=== PATIENT | female | born 1975 | race Caucasian/White ===

== ENCOUNTER 2017-11-02 17:04 | Emergency (ER) | payer OTHER ==
[~2017-11-02] VITALS: Ht 172.7 cm; Wt 95.3 kg
[~2017-11-02 17:04] MED LIST: AZITHROMYCIN 2250 MG PO; B-COMPLEX PLUS1 EACH PO; BUTALB-APAP-CA1 EACH PO; CEFTIN 250 MG250 MG PO; CIDATRINE500 MG PO; COMPAZINE10 MG PO; IMITREX100 MG PO; IRON; LOESTRIN 24 FE1 EACH PO; MOBIC7.5 M1 PO; MULTI-VITAMIN1 EAC5 PO; NEPHROCAPS SOFT1 CAP PO; NORCO 5-325 TA1 EACH PO; QVAR HFA 440 MCG/UN1 INH; ULTRAM 50MG TAB50 MG PO; VALIUM10 MG PO; VITAMIN D3400 UNIT PO; ZOFRAN ODT4 MG PO; ZOMIG ZMT5 MG PO
[2017-11-02 18:10] LABS: ABSOLUTE NEUTROPHILS 5.6 thou/uL (1.4-8.2); EOSINOPHILS 1.2 % (0.0-3.0); HEMATOCRIT 40.1 % (37.0-47.0); HEMOGLOBIN 13.4 gm/dL (12.0-15.0); LYMPHOCYTES 36.3 % (24.0-44.0); MCH 27.5 pg (26.0-34.0); MCHC 33.5 g/dL (28.0-37.0); MCV 82.2 fL (80.0-100.0); MONOCYTES 8.8 % (1.0-8.0); PLATELET COUNT 332 thou/uL (150-400); POLYS 52.7 % (36.0-66.0); RBC 4.88 mil/uL (4.20-5.00); RDW 15.6 % (10.5-14.5); WBC 10.6 thou/uL (4.0-11.0)
[2017-11-02 18:28] LABS: CREATININE 0.9 mg/dL (0.6-1.0); POTASSIUM 3.8 mmol/L (3.5-5.1)
[2017-11-02] MEDS ORDERED: COMPAZINE10 MG PO (19:30)
[2017-11-02 20:03] VITALS: BP 112/62
== END 2017-11-02 20:05 | disposition home or self-care (01) ==
LOC: ER 17:04
PROVIDERS: Physician Assistant
DX: G43.909 Migraine, unspecified, not intractable, without status migrainosus (principal); Z88.1 Allergy status to other antibiotic agents; Z88.8 Allergy status to other drugs, medicaments and biological substances

== ENCOUNTER 2019-05-10 19:20 | Inpatient (IN) | payer OTHER ==
[~2019-05-10] VITALS: Ht 175.3 cm; Wt 89.8 kg
[2019-05-10 19:20] VITALS: BP 122/78
[2019-05-10 20:34] LABS: ABSOLUTE NEUTROPHILS 9.5 thou/uL (1.4-8.2); BASOPHILS 0.4 % (0.0-2.0); EOSINOPHILS 0.2 % (0.0-3.0); HEMATOCRIT 41.6 % (37.0-47.0); HEMOGLOBIN 13.3 gm/dL (12.0-15.0); LYMPHOCYTES 8.7 % (24.0-44.0); MCHC 31.9 g/dL (28.0-37.0); MCV 90.8 fL (80.0-100.0); MONOCYTES 7.7 % (1.0-8.0); PLATELET COUNT 280 thou/uL (150-400); RBC 4.58 mil/uL (4.20-5.00); WBC 11.5 thou/uL (4.0-11.0)
[2019-05-10 21:31] LABS: ANION GAP 15 mmol/L (7-16); BUN 10 mg/dL (7-18); CALCIUM 9.6 mg/dL (8.5-10.1); CHLORIDE 102 mmol/L (98-107); CO2 22 mmol/L (21-32); CREATININE 0.9 mg/dL (0.6-1.0); GLUCOSE 106 mg/dL (74-106); POTASSIUM 4.2 mmol/L (3.5-5.1); SODIUM 139 mmol/L (136-145)
[2019-05-10 21:40] LABS: TROPONIN-I <0.06 ng/mL (<0.06)
[2019-05-11] MEDS ORDERED: FLONASE 0.05%50 MCG NASAL (03:34)
[2019-05-11 03:50] VITALS: BP 111/71
[2019-05-11 04:18] VITALS: BP 122/70
[2019-05-11 06:27] LABS: HEMATOCRIT 37.1 % (37.0-47.0); HEMOGLOBIN 12.5 gm/dL (12.0-15.0); MCH 29.8 pg (26.0-34.0); MCHC 33.6 g/dL (28.0-37.0); MCV 88.7 fL (80.0-100.0); RBC 4.18 mil/uL (4.20-5.00); RDW 13.9 % (10.5-14.5); WBC 10.2 thou/uL (4.0-11.0)
[2019-05-11 06:31] LABS: CALCIUM 9.2 mg/dL (8.5-10.1); CREATININE 0.9 mg/dL (0.6-1.0); POTASSIUM 3.8 mmol/L (3.5-5.1)
[2019-05-11 07:25] VITALS: BP 106/69
[2019-05-11] MEDS ORDERED: CYCLOBENZAPRINE5 MG PO (14:09)
[2019-05-11 14:27] VITALS: BP 106/69
--- NOTE | 2019-05-11 14:27 | EKG ---
[place] [address] [facility] [place] [address] ELECTROCARDIOGRAM REPORT Name: RADHA RUSSELLN Room #: 214-P ADM IN M.R.#: [id number] ������������������ Admission: 05/11/19 ������������������ Attend Phys: Andrae Reed MD Discharge: ������������������ Date of : 73 Report #: [id number] ����������������������������������������������������������������� [id number] THIS REPORT FOR: //name// [facility] ED Test Date: 2019-05-10 Test Time: 19:25:02 Pat Name: RADHA RUSSELL Department: Room: 214 Gender: F Manager Respiratory: : 1975 Requested By: Rupesh Berger Order Number: [id number] MD: Seun Hager Measurements Intervals [place] Rate: 97 P: 22 SC: 187 QRS: 43 QRSD: 86 T: 13 QT: 333 QTc: 423 Interpretive Statements Sinus rhythm Poor R wave progression Nonspecific T wave abnormality No previous ECG available for comparison Electronically Signed On 05-11-2019 14:27:25 CDT by Seun Hager [email or web address] ��������������������������������������������� <ELECTRONICALLY SIGNED> ���������������������������������������� By: Seun Hager MD, [facility] ��������������������������������������������� 05/11/19 1427 1925 24 Seun Hager MD, FACC /EPI
--- NOTE | 2019-05-11 14:32 | EKG ---
[address] Amanda [place] [address] ELECTROCARDIOGRAM REPORT Name: RADHA RUSSELL Room #: 214-P ADM IN M.R.#: [id number] ������������������ Admission: 05/11/19 ������������������ Attend Phys: Andrae Reed MD Discharge: ������������������ Date of : 73 Report #: [id number] ����������������������������������������������������������������� [id number] THIS REPORT FOR: //name// [facility] Test Date: 2019-05-11 Test Time: 07:10:53 Pat Name: RADHA RUSSELL Department: Room: 214 P Gender: F Fiscal Officer: Aries RENE : 1975 Requested By: Prema Zimmerman Order Number: [id number] MD: Seun Hager Measurements Intervals [place] Rate: 82 P: 36 RI: 197 QRS: 31 QRSD: 104 T: 57 QT: 383 QTc: 448 Interpretive Statements Sinus rhythm Nonspecific ST segment abnormality No previous ECG available for comparison Electronically Signed On 05-11-2019 14:32:22 CDT by Seun Hager [email or web address] ��������������������������������������������� <ELECTRONICALLY SIGNED> ���������������������������������������� By: Seun Hager MD, [facility] ��������������������������������������������� 05/11/19 1432 0710 0710 Seun Hager MD, FACC /EPI
== END 2019-05-11 15:06 | disposition home or self-care (01) | DRG 313 ==
LOC: ER 19:20 → EROBS 05-11 03:31 → 2N 05-11 03:52
PROVIDERS: Emergency Medicine; Nurse Practitioner Family; ADMIT Hospitalist
DX: R07.9 Chest pain, unspecified (principal); G43.909 Migraine, unspecified, not intractable, without status migrainosus; Z79.82 Long term (current) use of aspirin; Z79.899 Other long term (current) drug therapy; Z88.8 Allergy status to other drugs, medicaments and biological substances
CPT/HCPCS: 10081

== ENCOUNTER 2020-03-14 18:51 | Emergency (ER) | payer OTHER ==
[~2020-03-14] VITALS: Ht 175.3 cm; Wt 83.9 kg
[~2020-03-14 18:51] MED LIST changes: +CYCLOBENZAPRINE5 MG PO; +FLONASE 0.05%50 MCG NASAL
[2020-03-14] MEDS ORDERED: TRAMADOL 50 MG50 MG PO (19:19)
[2020-03-14] MEDS ORDERED: NABUMETONE 500500 M1 PO (19:19)
[2020-03-14 20:48] LABS: HEMATOCRIT 38.1 % (37.0-47.0); HEMOGLOBIN 13.2 gm/dL (12.0-15.0); MCH 30.5 pg (26.0-34.0); MCHC 34.7 g/dL (28.0-37.0); MCV 87.9 fL (80.0-100.0); RBC 4.33 mil/uL (4.20-5.00); RDW 14.7 % (10.5-14.5); WBC 3.3 thou/uL (4.0-11.0)
[2020-03-14] MEDS ORDERED: BUTALB-APAP-CA1 EACH PO (20:59)
[2020-03-14 21:27] LABS: CALCIUM 8.7 mg/dL (8.5-10.1); CREATININE 0.9 mg/dL (0.6-1.0); POTASSIUM 3.7 mmol/L (3.5-5.1)
[2020-03-14 23:03] VITALS: BP 106/69
== END 2020-03-14 23:05 | disposition home or self-care (01) ==
LOC: ER 18:51
PROVIDERS: Physician Assistant
DX: G43.909 Migraine, unspecified, not intractable, without status migrainosus (principal); Z79.899 Other long term (current) drug therapy; Z88.1 Allergy status to other antibiotic agents; Z88.8 Allergy status to other drugs, medicaments and biological substances

== ENCOUNTER 2021-08-08 23:27 | Inpatient (IN) | payer OTHER ==
[~2021-08-08] VITALS: Ht 175.3 cm; Wt 103.7 kg
[2021-08-08 23:27] VITALS: BP 126/76
[~2021-08-08 23:27] MED LIST changes: +NABUMETONE 500500 M1 PO; +TRAMADOL 50 MG50 MG PO
[2021-08-08] MEDS ORDERED: ZANAFLEX4 MG PO (23:33)
[2021-08-09 00:18] LABS: URINE BILIRUBIN NEGATIVE (Negative); URINE BLOOD 1+ (Negative); URINE CLARITY CLEAR; URINE COLOR YELLOW; URINE GLUCOSE-RANDOM* NEGATIVE (Negative); URINE KETONES NEGATIVE (Negative); URINE LEUKOCYTES-REFLEX NEGATIVE (Negative); URINE NITRITE-REFLEX NEGATIVE (Negative); URINE PROTEIN (DIPSTICK) NEGATIVE (Negative); URINE UROBILINOGEN 0.2 E.U./dl (0.2-1.0)
[2021-08-09 01:04] LABS: BACTERIA-REFLEX 1-9 Few /HPF (None Seen); CASTS None Seen /LPF (None Seen); CRYSTALS None Seen /LPF (None Seen); MUCUS 4-6 Moderate strn/LPF (None Seen); SQUAMOUS 4-10 Moderate /LPF (0-3); URINE RBC 3-10 Few /HPF (NONE SEEN); URINE WBC-REFLEX 0-5 Rare /HPF (0-5)
[2021-08-09 01:50] LABS: BASOPHILS 0.3 % (0.0-2.0); EOSINOPHILS 0.3 % (0.0-3.0); HEMATOCRIT 47.9 % (37.0-47.0); HEMOGLOBIN 15.6 gm/dL (12.0-15.0); LYMPHOCYTES 12.6 % (24.0-44.0); MCH 30.5 pg (26.0-34.0); MCHC 32.7 g/dL (28.0-37.0); MCV 93.3 fL (80.0-100.0); MONOCYTES 10.9 % (1.0-8.0); PLATELET COUNT 339 thou/uL (150-400); POLYS 75.9 % (36.0-66.0); RBC 5.13 mil/uL (4.20-5.00); RDW 13.6 % (10.5-14.5); WBC 15.8 thou/uL (4.0-11.0)
[2021-08-09 01:56] LABS: ANION GAP 13 mmol/L (7-16); BUN 11 mg/dL (7-18); CALCIUM 9.6 mg/dL (8.5-10.1); CHLORIDE 99 mmol/L (98-107); CO2 23 mmol/L (21-32); CREATININE 1.1 mg/dL (0.6-1.0); GLUCOSE 99 mg/dL (74-106); POTASSIUM 3.5 mmol/L (3.5-5.1); SODIUM 135 mmol/L (136-145)
[2021-08-09 02:02] LABS: ALBUMIN 4.2 g/dL (3.4-5.0); DIRECT BILIRUBIN < 0.1 mg/dL (<0.1-0.2); LIPASE 93 U/L (73-393); SGOT 16 U/L (15-37); SGPT 25 U/L (14-59); TOTAL BILIRUBIN 0.5 mg/dL (0.2-1.0); TOTAL PROTEIN 8.8 g/dL (6.4-8.2)
[2021-08-09 04:30] VITALS: BP 106/63
[2021-08-09 16:25] VITALS: BP 124/72
[2021-08-09 16:40] VITALS: BP 132/62
[2021-08-09 19:38] VITALS: BP 103/66
[2021-08-10 07:58] VITALS: BP 100/61
[2021-08-10 16:02] VITALS: BP 107/66
[2021-08-10 19:42] VITALS: BP 109/74
[2021-08-11 08:44] VITALS: BP 108/72
[2021-08-11 16:07] VITALS: BP 110/73
[2021-08-11 20:04] VITALS: BP 128/55
[2021-08-11 20:06] VITALS: BP 128/55
[2021-08-11 20:13] VITALS: BP 108/68
[2021-08-12 07:50] VITALS: BP 120/76
--- NOTE | 2021-08-12 12:22 | PATH ---
[facility] [address] [place] [address] PATHOLOGY RPT PROCEDURE Name: RADHA RUSSELL Room #: 448-P ADM IN M.R.#: [id number] Admission: 08/09/21 Date of : 73 Discharge: Report #: [id number] Path Case #: [id number] [facility] Accession Number: [id number] . 01 Material submitted: . appendix - APPENDIX . 01 Clinician provided ICD-10: 00 . 01 Clinical history: . SJ LAPAROSCOPIC APPENDECTOMY APPENDICITIS . 02 Diagnosis: Appendix, appendectomy: - Acute appendicitis with serositis. . (ANK:mml; 08/11/2021) [facility] 08/11/2021 1100 Local . 02 Electronically signed: . Khushbu Menendez MD, Pathologist NPI- [id number] . 01 Gross description: . Fixative: Formalin Labeled: Appendix Appendix length: Approximately 9.5 cm Appendix diameter: Up to 1.0 cm Mesoappendix: Up to 2.1 cm Proximal margin: Stapled Serosa: Light huggins to dark huggins-deutsch and roughened Cut surface: Patent to dilated lumen Luminal diameter: Up to 0.9 cm Perforation: None identified Lesions/abnormalities: None identified A1 Proximal margin (inked black) and distal tip, bisected A2 Mid appendix ([facility]; 08/10/2021) [facility] 08/10/2021 1048 Local . 02 Pathologist provided ICD-10: K35.20 . 02 CPT . 949404 Specimen Comment: A courtesy copy of this report has been sent to [phone] [address] PATHOLOGY RPT PROCEDURE Name: RADHA RUSSELL FRENCH Room #: 448-P [facility] IN [facility].#: [id number] Admission: 08/09/21 Date of : 73 Discharge: Report #: [id number] Path Case #: [id number] Specimen Comment: [id number] Specimen Comment: Report sent to / DR FLOOD Specimen Comment: A duplicate report has been generated due to demographic updates. Performed at: 01 [facility] [address] [id number] MD Kurt Hubbard MD Phone: [phone] Performed at: [address] [place] [id number] [address] Khushbu [address] DR Phone: [phone]
[2021-08-12] MEDS ORDERED: NORCO5 PO (17:14)
[2021-08-12] MEDS ORDERED: CIPROFLOXACIN250 M2 PO (17:16)
[2021-08-12] MEDS ORDERED: METRONIDAZOLE500 M4 PO (17:17)
[2021-08-12 17:38] VITALS: BP 120/76
--- NOTE | 2021-09-09 09:21 | O ---
[facility] [place] [address] OPERATIVE REPORT Name: RADHA RUSSELL Room #: 448-P [facility] IN M.R.#: [id number] Admission: 08/09/21 Attend Phys: Jose E Pettit, Discharge: 08/12/21 Date of : 73 Report #: [id number] THIS REPORT FOR: cc: Darren Ruff MD, John H. MD Patterson,Jose E Petersen MD ~ DATE OF SERVICE: 08/09/2021 PREOPERATIVE DIAGNOSIS: Acute appendicitis. POSTOPERATIVE DIAGNOSIS: Acute perforated appendicitis. OPERATION: Laparoscopic appendectomy. SURGEON: Jose E Pettit MD ANESTHESIA: General. ESTIMATED BLOOD LOSS: Minimal. SPECIMENS: Appendix. DESCRIPTION OF PROCEDURE: After informed consent was obtained, the patient was brought to the operating room and placed supine. SCDs were placed and working, preoperative antibiotics were administered, general anesthesia was induced. The abdomen was prepped and draped in the usual sterile fashion. A 10 mm incision was made above the umbilicus. Fascia was incised and a trocar was placed. Pneumoperitoneum was established. Right upper quadrant and left lower quadrant 5 mm trocars were placed. The appendix was grasped and retracted anteriorly. A window was made in the mesoappendix. The base of the appendix was then stapled with a SIGIFREOD blue load stapler. The mesoappendix was ligated using the SIGIFREDO deutsch load stapler. There was excellent hemostasis. Purulent fluid was suctioned out from the pelvis. The appendix was placed into an Endopouch and removed. The fascia was then closed with a [id number] 0 Vicryl. Skin was closed with 4-0 Monocryl. Incisions were dressed with Steri-Strips. COMPLICATIONS: None. DISPOSITION: The patient was taken to recovery in satisfactory condition. <ELECTRONICALLY SIGNED> By: Jose E Pettit MD 09/09/21 0921 1257 1323 Jose E Pettit MD /nt
== END 2021-08-12 19:19 | disposition home or self-care (01) | DRG 339 ==
LOC: ER 23:27 → TBA 08-09 02:51 → EROBS 08-09 02:51 → 4S 08-09 02:51 → EROBS 08-09 02:52 → 4S 08-09 11:13 → TBA 08-09 11:25 → 4S 08-09 16:33
PROVIDERS: Student in an Organized Health Care Education/Training Program; ADMIT Surgery; ATTEND Surgery
PROC: 0DTJ4ZZ Resection of Appendix, Percutaneous Endoscopic Approach (ICD-10-PCS; principal; 2021-08-09)
DX: K35.32 Acute appendicitis with perforation, localized peritonitis, and gangrene, without abscess (principal); R65.10 Systemic inflammatory response syndrome (SIRS) of non-infectious origin without acute organ dysfunction; Z20.822 Contact with and (suspected) exposure to COVID-19; G43.909 Migraine, unspecified, not intractable, without status migrainosus; Z88.1 Allergy status to other antibiotic agents; Z88.8 Allergy status to other drugs, medicaments and biological substances; Z79.899 Other long term (current) drug therapy
CPT/HCPCS: 10102; 50010; 50101; 50411; 50555; 50739; 50740; 51489; 52265; 52266; 53307; 53312; 53314; 56462; 56525; 56526; 58574; 58867; 62110; 62900; 70005